=== PATIENT | female | born 1975 | race Caucasian/White ===

== ENCOUNTER 2018-03-21 09:07 | Emergency (ER) | payer BC ==
[~2018-03-21] VITALS: Ht 167.6 cm; Wt 88.0 kg
[~2018-03-21 09:07] MED LIST: ADDERALL; ADDERALL 20 MG20 M1 PO; ADDERALL 20 MG20 MG PO; ADDERALL 30 MG30 MG PO; ALBUTEROL2.5 MG/0.5 IH; ALBUTEROL2.5 MG/31 INH; AMBIEN 10 MG TA10 MG PO; AMITRIPTYLINE H10 M3; AMITRIPTYLINE H25 M2 PO; AMITRIPTYLINE100 MG PO; AMOXICILLIN 50500 MG PO; AMPICILLIN TRI500 MG PO; AZITHROMYCIN 2250 MG PO; BACTRIM DS TAB1 EACH PO; BUTALB-APAP-CA1 EACH PO; CIPRO250 M1; CIPRO250 M1 PO; CIPRO500 MG PO; CIPRO500 MG/5 M PO; CIPROFLOXACIN500 M1; CIPROFLOXACIN500 M1 PO; CITRATE OF MAG296 ML PO; COLACE100 MG PO; DEPAKOTE500 MG PO; DESYREL150 MG; DIABETA 2.5MG2.5 MG PO; DIAZEPAM 5 MG5 M1 PO; DIFLUCAN150 MG; DOXYCYCLINE 10100 MG PO; FLEXERIL PO; FLOMAX0.4 MG PO; HYDROCODON-ACE1 EA11 PO; HYDROCODON-ACE1 EA12; HYDROCODON-ACE1 EAC7; HYDROCODON-ACE1 EACH PO; HYDROCODONE-AP1 EAC6 PO; HYOSCYAMIN125 MCG/5 PO; HYOSCYAMINE0.375 M2 PO; IBUPROFEN 600600 M1 PO; IMITREX 25 MG T25 M1 PO; K-DUR 20 MEQ T20 MEQ PO; KCLP 20 MEQ2 MEQ/ML PO; KLONOPIN1 MG PO; LASIX 20 MG TAB20 MG PO; LIPITOR 20 MG T20 M1 PO; LIPITOR10 MG PO; LOMOTIL TABLET1 EACH PO; LORTAB 5 MG/5001 TA1 PO; LORTAB 5 MG/5001 TAB PO; MEDROLDOSEPACK PO; MELATONIN 5 MG1 EAC1; METFORMIN HCL500 MG PO; MIRALAX255 GM PO; MOBIC15 MG PO; NORCO 5-325 TA1 EAC1 PO; NORCO 5-325 TA1 EACH PO; OMEPRAZOLE; ONDANSETRON HCL4 M2 PO; PERCOCET 5-3251 EACH; PERCOCET 5-3251 EACH PO; PERCOCET 7.5-31 EACH PO; PERCOCET 7.5-51 EACH; PHENERGAN 25 MG25 M1; PHENERGAN 25 MG25 M1 PO; PHENERGAN 25 MG25 MG PO; POTASSIUM; PRAZOSIN 1 MG CA1 M1 PO; PREDNISONE 10 M10 M1 PO; PREDNISONE 20 M20 M1 PO; PROAIR HFA8.5 GM IH; PROMETHAZINE HC25 M2 PO; PROMETHEGAN25 MG RC; ROBAXIN 750 MG750 M1 PO; ROBAXIN500 MG PO; SAPHRIS5 MG; SEROQUEL XR 30300 M1 PO; SEROQUEL400 MG PO; SINGULAIR 10 MG10 M1 PO; STOOL SOFTENER100 MG; TAMSULOSIN HCL0.4 M1 PO; TAMSULOSIN HCL0.4 MG PO; TEGRETOL200 MG PO; TOPAMAX50 MG PO; TRAMADOL 50 MG50 MG PO; TRAZODONE 150150 M1 PO; TRAZODONE HCL100 MG PO; TRILEPTAL300 MG; TRILIPIX45 MG PO; Trazodone PO; ULTRAM 50MG TAB50 MG PO; VALIUM5 MG PO; VENTOLIN HFA INH8 GM INH; XANAX XR1 MG PO; ZESTRIL10 MG PO; ZESTRIL20 MG PO; ZOFRAN ODT4 MG PO; ZOFRAN4 MG PO
[2018-03-21] MEDS ORDERED: TRAZODONE HCL100 MG PO (09:18)
[2018-03-21] MEDS ORDERED: TRILEPTAL600 MG PO (09:18)
[2018-03-21] MEDS ORDERED: MINIPRESS2 MG PO (09:18)
[2018-03-21 10:03] LABS: URINE BILIRUBIN NEGATIVE (Negative); URINE BLOOD 1+ (Negative); URINE CLARITY CLEAR; URINE COLOR YELLOW; URINE GLUCOSE-RANDOM NEGATIVE (Negative); URINE KETONES NEGATIVE (Negative); URINE LEUKOCYTES-REFLEX NEGATIVE (Negative); URINE NITRITE-REFLEX NEGATIVE (Negative); URINE PROTEIN NEGATIVE (Negative); URINE SPECIFIC GRAVITY >= 1.030 (1.005-1.030); URINE UROBILINOGEN 0.2 E.U./dl (0.2-1.0)
[2018-03-21 10:11] LABS: ABSOLUTE BASOPHILS 0.1 thou/uL (0.0-0.2); ABSOLUTE EOSINOPHILS 0.1 thou/uL (0.0-0.7); ABSOLUTE LYMPHOCYTES 1.4 thou/uL (0.8-5.3); ABSOLUTE MONOCYTES 0.6 thou/uL (0.0-1.2); ABSOLUTE NEUTROPHILS 8.8 thou/uL (1.6-8.1); BASOPHILS 0.7 %; EOSINOPHILS 0.6 %; HEMATOCRIT 43.7 % (37.0-47.0); HEMOGLOBIN 15.3 gm/dL (12.0-15.0); MCH 33.6 pg (26.0-34.0); MCHC 34.9 g/dL (28.0-37.0); MCV 96.1 fL (80.0-100.0); MONOCYTES 5.5 %; MPV 7.3 fl. (7.2-11.1); NUCLEATED RBCS 0 /100WBC; PLATELET COUNT* 206 thou/uL (150-400); POLYS 80.2 %; RBC 4.55 mil/uL (4.20-5.00); RDW-CV 13.1 % (10.5-14.5)
[2018-03-21 10:14] LABS: SQUAMOUS 4-10 Moderate /LPF (0-3); URINE RBC 3-10 Few /HPF (0-2); URINE WBC-REFLEX 0-5 Rare /HPF (0-5)
[2018-03-21 10:15] LABS: BACTERIA-REFLEX 1-9 Few /HPF (None Seen); CASTS None Seen /LPF (None Seen); CRYSTALS None Seen /LPF (None Seen); MUCUS None Seen strn/LPF (None Seen)
[2018-03-21 10:28] LABS: CREATININE 0.9 mg/dL (0.6-1.3); POTASSIUM 3.8 mmol/L (3.5-5.1)
[2018-03-21 10:32] LABS: ALBUMIN 3.9 g/dL (3.4-5.0); TOTAL BILIRUBIN 0.2 mg/dL (<0.1-1.0); TOTAL PROTEIN 7.1 g/dL (6.4-8.2)
[2018-03-21] MEDS ORDERED: PERCOCET 5-3251 EACH PO (12:38)
[2018-03-21] MEDS ORDERED: FLOMAX0.4 MG PO (12:38)
[2018-03-21] MEDS ORDERED: PHENERGAN 25 MG25 M1 PO (12:38)
[2018-03-21 13:03] VITALS: BP 119/68
== END 2018-03-21 13:24 | disposition home or self-care (01) ==
LOC: M.ERS 09:07
PROVIDERS: Personal Emergency Response Attendant
DX: N23 Unspecified renal colic (principal); I10 Essential (primary) hypertension; E78.00 Pure hypercholesterolemia, unspecified; G43.909 Migraine, unspecified, not intractable, without status migrainosus; M79.7 Fibromyalgia; F31.9 Bipolar disorder, unspecified; F90.9 Attention-deficit hyperactivity disorder, unspecified type; Z90.49 Acquired absence of other specified parts of digestive tract; Z90.710 Acquired absence of both cervix and uterus; F17.210 Nicotine dependence, cigarettes, uncomplicated; Z88.5 Allergy status to narcotic agent